=== PATIENT | male | born 1930 | race Caucasian/White ===

== ENCOUNTER 2020-06-11 07:11 | Day surgery (SDC) | payer MEDICARE ==
[2020-06-04 12:58] LABS: ALBUMIN 4.1 G/DL (3.4-5.0); ALBUMIN/GLOBULIN RATIO 1.5 (1.1-1.5); ALKALINE PHOSPHATASE 43 IU/L (46-116); BLOOD UREA NITROGEN 22 MG/DL (7-18); BUN/CREATININE RATIO 23.2 (5.4-32.0); CALCIUM 8.8 MG/DL (8.5-10.1); CHLORIDE 107 MMOL/L (99-107); CREATININE 0.95 MG/DL (0.60-1.10); PRE OP ALT 24 U/L (30-65); PRE OP ANION GAP 9 (8-16); PRE OP AST 17 U/L (10-37); PRE OP BILIRUB, TOTAL 0.7 MG/DL (0.0-1.0); PRE OP GLUCOSE 106 MG/DL (70-104); PRE OP SODIUM 146 MMOL/L (135-145); TOTAL CARBON DIOXIDE 30.1 MMOL/L (24-32); TOTAL PROTEIN 6.9 G/DL (6.4-8.2); eGFR 75 ML/MIN
[2020-06-04 13:04] LABS: EOSINOPHILS # (AUTO) 0.2 X10'3 (0-0.9); MEAN CORPUSCULAR HGB CONC 33.5 g/dL (33.0-36.5); RED CELL DISTRIBUTION WIDTH 15.5 % (11.5-14.5)
[2020-06-04 13:06] LABS: BASOPHILS # (AUTO) 0.1 X10'3 (0-0.2); BASOPHILS % (AUTO) 2.4 % (0-1); EOSINOPHILS % (AUTO) 3.4 % (0-6); LYMPHOCYTES # (AUTO) 1.7 X10'3 (1.1-4.8); MEAN CORPUSCULAR VOLUME 104.3 FL (78-98); MEAN PLATELET VOLUME 9.3 FL (7.4-10.4); MONOCYTES # (AUTO) 0.5 X10'3 (0-0.9); MONOCYTES % (AUTO) 9.3 % (2-12); NEUTROPHILS # (AUTO) 3.2 X10'3 (1.8-7.7); NEUTROPHILS % (AUTO) 54.9 % (42-75); PRE OP HEMATOCRIT 39.4 % (42.0-52.0); PRE OP HEMOGLOBIN 13.2 g/dL (14.0-17.9); PRE OP PLATELET COUNT 210 X10'3 (140-440); RED BLOOD COUNT 3.78 X10'6 (4.70-6.10)
[2020-06-11] VITALS (22 sets, daily range): BP systolic 102–148; BP diastolic 61–92
[~2020-06-11] VITALS: Ht 170.2 cm; Wt 60.5 kg
[2020-06-11] MEDS: ceFAZolin 2gm in dextrose, iso 50 ML IV ONE (05:30)
[~2020-06-11 07:11] MED LIST: ALEN70TA80 PO; FLUT1BLS4 INH
[2020-06-11] MEDS: famotidine 20mg tablet PO ONE (08:30)
[2020-06-11] MEDS: ringers solution, lacted 1,000 ML IV SCH (08:30)
[2020-06-11] MEDS ORDERED: albuterol 2.5 MG/3 ML nebule NEB ONE (08:40)
[2020-06-11] MEDS: albuterol 2.5 MG/3 ML nebule NEB ONE (08:58)
[2020-06-11] MEDS ORDERED: fentaNYL/PF 50MCG/1 ML 2ML syringe IV PRN ×2 (09:50)
[2020-06-11] MEDS ORDERED: ringers solution, lacted 1,000 ML IV SCH (09:50)
[2020-06-11] MEDS ORDERED: morphine 2 MG/ML inj. syringe IV PRN (09:50)
[2020-06-11] MEDS ORDERED: labetalol 20mg/4ml (5mg/ml) syringe IV PRN (09:50)
[2020-06-11] MEDS ORDERED: ondansetron/PF 4mg/2ml inj IV PRN (09:50)
[2020-06-11] MEDS ORDERED: morphine 4 MG/ML inj SYRINge IV PRN (09:50)
[2020-06-11] MEDS ORDERED: hydrALAZINE 20mg/ml inj. IV PRN (09:50)
[2020-06-11] MEDS ORDERED: phenylephrine 10mg/ml inj. ONE (11:37)
[2020-06-11] MEDS ORDERED: sevoflurane 250ml liquid IH ONE (11:37)
[2020-06-11] MEDS ORDERED: neostigmine methylsulfate 1 MG/ML 10ml vial ONE (11:37)
[2020-06-11] MEDS ORDERED: dexamethasone sod phosphate 10mg/ml inj ONE (11:37)
[2020-06-11] MEDS ORDERED: fentaNYL/PF 50MCG/1 ML 2ML syringe ONE (11:46)
[2020-06-11] MEDS ORDERED: midazolam 2 mg/2 ml injection ONE (11:46)
[2020-06-11] MEDS ORDERED: ondansetron/PF 4mg/2ml inj ONE (11:54)
[2020-06-11] MEDS ORDERED: LIDOcaine 2% (20mg/ml) 5ml vial ONE (11:56)
[2020-06-11] MEDS ORDERED: propofol inj 20 ML IV ONE (11:56)
[2020-06-11] MEDS ORDERED: rocuronium 10mg/ml inj IV ONE (11:57)
[2020-06-11] MEDS ORDERED: glycopyrrolate 0.2mg/ml inj ONE (11:58)
[2020-06-11] MEDS: BUPIVAcaine/PF 2.5 mg/ml (0.25%) 30ml vial ONE (12:17)
[2020-06-11] MEDS: LIDOcaine 1% 30ml preserv. free vial ONE (12:18)
--- NOTE | 2020-06-11 12:43 | NUR ---
Received from OR via [facility], accompanied by Anesthesiologist DR KNIGHT and report given by Anesthesiologist. PT VERY DROWSY, NO S/S OF DISTRESS/DISCOMFORT, ABDOMEN W/3 LAP SITES W/BANDAIDS CDI. Addendum: 06/11/20 at 1500 by Kelli Silva RN Amended: Links added.
[2020-06-11] MEDS ORDERED: HYDROcodone/acetaminophen 5mg/325mg tablet PO PRN (12:45)
--- NOTE | 2020-06-11 15:03 | NUR ---
PT VSS, REMAINS SLEEPY, STILL NEEDS TO VOID. PT SENT BACK TO PAS UNIT, REPORT GIVEN TO ANTON NASCIMENTO. Addendum: 06/11/20 at 1509 by Kelli Silva RN Amended: Links added.
--- NOTE | 2020-06-11 15:46 | NUR ---
BLADDER SCAN FOR 341 MLS. GAVE PT MORE LIQUIDS TO DRINK.
[2020-06-11] MEDS: HYDROcodone/acetaminophen 5mg/325mg tablet PO ONE (16:14)
--- NOTE | 2020-06-11 16:21 | NUR ---
GAVE PT ONE NORCO IN PREPARATION FOR DISCHARGE HOME. REMOVED IV. PT IS TOLERATING PO LIQUIDS WELL.
--- NOTE | 2020-06-11 17:02 | NUR ---
PT IS STILL UNABLE TO VOID. BLADDER SCAN RESIDUAL IS 369MLS. WILL PLACE [facility] CATH. PT'S DAUGHTER UPDATED WITH STATUS AND DISCHARGE TIME.
== END 2020-06-11 16:20 | disposition home or self-care (01) ==
LOC: PAS 07:11
PROVIDERS: ATTEND Surgery
DX: K40.90 Unilateral inguinal hernia, without obstruction or gangrene, not specified as recurrent (principal); M85.80 Other specified disorders of bone density and structure, unspecified site; J44.9 Chronic obstructive pulmonary disease, unspecified; Z79.899 Other long term (current) drug therapy; Z20.822 Contact with and (suspected) exposure to COVID-19; Z87.891 Personal history of nicotine dependence; Z72.89 Other problems related to lifestyle; Z98.890 Other specified postprocedural states; Z80.9 Family history of malignant neoplasm, unspecified
CPT/HCPCS: 36415; 49650; 71046; 80053; 82948; 85025; 87635; 93005; 94640; 94760; C1781; J1100; J2001; J2250; J2370; J2405; J2704; J2710; J3010; J3490; A4215; A4618; J7120